=== PATIENT | female | born 1990 | race African-American/Black ===

== ENCOUNTER 2018-01-22 12:55 | Emergency (ER) | payer OTHER ==
[~2018-01-22] VITALS: Ht 170.2 cm; Wt 61.2 kg
[2018-01-22 13:04] VITALS: BP 143/60
[2018-01-22] MEDS ORDERED: Bacitracin Oint UD TOPIC ONE ×2 (13:15→14:15)
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
[2018-01-22 14:00] LABS: BASOPHILS % (AUTO) 1.1 % (0.0-2.0); EOSINOPHILS % (AUTO) 0.8 % (0.0-3.0); HEMATOCRIT 39.2 % (37.0-47.0); HEMOGLOBIN 12.5 G/DL (12.0-16.0); LYMPHOCYTES % (AUTO) 18.6 % (20.0-45.0); MEAN CORPUSCULAR VOLUME 82 FL (80-99); MONOCYTES % (AUTO) 5.8 % (1.0-10.0); NEUTROPHILS % (AUTO) 73.7 % (45.0-75.0); PLATELET COUNT 218 K/UL (150-450); RED BLOOD COUNT 4.75 M/UL (4.20-5.40); RED CELL DISTRIBUTION WIDTH 11.3 % (11.6-14.8); WHITE BLOOD COUNT 4.4 K/UL (4.8-10.8)
[2018-01-22] MEDS ORDERED: Acetaminophen 500mg (ES) tab ORAL ONE (14:00)
[2018-01-22 14:17] LABS: ANION GAP 7 mmol/L (5-15); BLOOD UREA NITROGEN 8 mg/dL (7-18); CALCIUM 9.4 MG/DL (8.5-10.1); CARBON DIOXIDE 27 MMOL/L (21-32); CHLORIDE 104 MMOL/L (98-107); POTASSIUM 3.5 MMOL/L (3.5-5.1); SODIUM 138 MMOL/L (136-145)
--- NOTE | 2018-01-22 14:22 | Diagnostic Imaging Report ---
Indication: Technique Technique: 3 views of the right knee Comparison: None Findings: No suprapatellar effusion. No acute fractures. No dislocations. Joint spaces are preserved Impression: Negative
[2018-01-22 14:23] LABS: ALANINE AMINOTRANSFERASE 15 U/L (12-78); ALBUMIN 3.6 G/DL (3.4-5.0); ALKALINE PHOSPHATASE 64 U/L (46-116); ASPARTATE AMINO TRANSFERASE 29 U/L (15-37); BILIRUBIN,TOTAL 0.5 MG/DL (0.2-1.0)
[2018-01-22 15:53] LABS: APPEARANCE,URINE CLOUDY; BILIRUBIN, URINE NEGATIVE (NEGATIVE); GLUCOSE, URINE (UA) NEGATIVE (NEGATIVE); KETONES,URINE 1+ (NEGATIVE); LEUKOCYTE ESTERASE ,URINE 1+ (NEGATIVE); NITRITE,URINE NEGATIVE (NEGATIVE); PH,URINE 6.5 (4.5-8.0); PROTEIN,URINE 2+ (NEGATIVE); UROBILINOGEN,URINE 1 MG/DL (0.0-1.0)
[2018-01-22 15:54] LABS: COLOR,URINE YELLOW
[2018-01-22] MEDS ORDERED: BACITRACIN-P28.35 GM TP (16:08)
[2018-01-22] MEDS ORDERED: TYLENOL EXTRA500 MG ORAL (16:08)
[2018-01-22 16:17] VITALS: BP 132/72
== END 2018-01-22 16:17 | disposition home or self-care (01) ==
LOC: EDBD 12:55 → EMR 13:05
DX: Z02.89 Encounter for other administrative examinations (principal); T14.8XXA Other injury of unspecified body region, initial encounter; R10.9 Unspecified abdominal pain; X58.XXXA Exposure to other specified factors, initial encounter; Y93.9 Activity, unspecified; Y92.9 Unspecified place or not applicable; Y99.8 Other external cause status
CPT/HCPCS: 36415; 80053; 80307; 80329; 81003; 81025; 83690; 84702; 85025; 99283